=== PATIENT | male | born 1985 | race African-American/Black ===

== ENCOUNTER 2023-12-14 07:24 | Emergency (ER) | payer OTHER, SELFPAY ==
[2023-12-14] VITALS (27 sets, daily range): BP systolic 117–140; BP diastolic 84–102; PULSE 73–86; RESP 13–18; TEMP 36.3–37; O2SAT 92–100
--- NOTE | ~2023-12-14 | CT_ITS ---
EXAMINATION: CT soft tissue neck w con DATE: 12/14/2023 09:20 INDICATION: Sore throat. Assess for abscess. TECHNIQUE: Computed tomography (CT) of the neck was performed with 75 mL Omnipaque-350 intravenous co ntrast. Automated exposure control and iterative reconstruction technique were employed. The dose-krish gth product was 673.69 mGy-cm. COMPARISON: None FINDINGS: Mild discoid atelectasis in the left upper lobe. Orbits are normal. The paranasal sinuses, mastoid ai r cells and middle ear cavities are all clear. Submandibular and parotid glands are symmetric. Thyroi d gland is unremarkable. There is enlargement of the palatine tonsils, significantly more prominent o n the left where along the deep margin of the tarsal is a 2.7 x 2.1 x 1.1 cm peritonsillar abscess. T here is a smaller less well-defined region of decreased attenuation at the deep margin of the right p alatine tonsil measuring approximately 1.3 x 0.9 x 0.5 cm which could represent additional small absc ess versus phlegmonous change. There is effacement of the left side of the vallecula and piriform sin us which demonstrates low attenuation with a few internal foci of gas. There is small amount of more frothy appearing mucous along the posterior midline of the nasopharynx, oropharynx and hypopharynx. M ild asymmetric enlargement of the left but not the right lingual tonsil. Epiglottis is normal. There is likely reactive bilateral level 2 lymphadenopathy with lymph nodes measuring up to 1.8 cm on the l eft and 1.6 cm on the right. There is additional mild bilateral cervical and submandibular lymphadeno sheeba with increased prominence of multiple still normal-sized lymph nodes. The vasculature is patent and normal in caliber. Airway is unremarkable. Postoperative change of prior median sternotomy and l ikely coronary artery bypass grafting with surgical clips at the superior mediastinum which is otherw ise unremarkable. IMPRESSION: 1. Bilateral palatine tonsillitis with 2.7 x 2.1 x 1.1 cm peritonsillar abscess on the left and small amount smaller less well-defined 1.3 x 0.9 x 0.5 cm region of decreased attenuation on the right whi ch could represent additional peritonsillar abscess or less well-developed phlegmonous change. 2. Partial effacement of the left side of the vallecula and piriform sinus with low density and a few small foci of gas, unclear whether this represents additional soft tissue swelling with edema and ga s, either within the soft tissues or along mucosal folds versus potentially mucus. 3. Likely reactive bilateral cervical lymphadenopathy, greatest at the high jugular chains. Reviewed, dictated and finalized at location A. PMENT SUPERINTENDENT IMPRESSION: 1. Bilateral palatine tonsillitis with 2.7 x 2.1 x 1.1 cm peritonsillar abscess on the left and small amount smaller less well-defined 1.3 x 0.9 x 0.5 cm lia on of decreased attenuation on the right which could represent additional perit onsillar abscess or less well-developed phlegmonous change. 2. Partial effacement of the left side of the vallecula and piriform sinus with low density and a few small foci of gas, unclear whether this represents addit ional soft tissue swelling with edema and gas, either within the soft tissues o r along mucosal folds versus potentially mucus. 3. Likely reactive bilateral cervical lymphadenopathy, greatest at the high jug ular chains.
--- NOTE | 2023-12-14 08:20 | ED.GENADULT ---
HPI - General Adult General Chief complaint: Unspecified Stated complaint: UPPER RESP C/O Time Seen by Provider: 12/14/23 07:35 History of Present Illness HPI narrative: Patient is a 38-year-old male presenting with sore throat. States that it has been going on for the last week. States that it hurts to swallow and talk. States that he went to [facility] earlier today and they discharged him with Augmentin but did not do anything else. He is concerned for a peritonsillar abscess. States that they did not give him any pain meds. No fevers, chest pain, shortness of breath, abdominal pain, vomiting. Related Data Allergies Allergy/AdvReac Type Severity Reaction Status Date / Time morphine Allergy Intermediate Hives / Verified 12/14/23 07:35 Red Face Review of Systems Review of Systems: All systems reviewed & are unremarkable except as noted in HPI and below Exam Narrative: GENERAL: Nontoxic, no acute distress HEAD: Normocephalic, atraumatic. EYES: PERRLA and EOMI. ENT: Mucous membranes moist. + posterior pharyngeal edema/erythema worse on the left; airway patent, handling secretions NECK: Supple. CHEST: Clear to auscultation. No respiratory distress. HEART: Regular rate and rhythm ABDOMEN: Soft, nontender, nondistended EXTREMITIES: Normal range of motion. SKIN: Warm, dry, no rash. NEURO: No focal deficits. Alert and oriented x3. PSYCH: Normal mood and affect. Course Vital Signs Vital signs: Vital Signs Temperature 97.4 F L 12/14/23 07:30 Pulse Rate 78 12/14/23 07:30 Respiratory Rate 18 12/14/23 07:30 Blood Pressure 140/102 H 12/14/23 07:30 Pulse Oximetry 98 12/14/23 07:30 Oxygen Delivery Room Air 12/14/23 07:30 Temperature 98.6 F 12/14/23 12:31 Pulse Rate 74 12/14/23 14:01 Respiratory Rate 18 12/14/23 14:01 Blood Pressure 124/94 H 12/14/23 14:01 Pulse Oximetry 97 12/14/23 14:15 Oxygen Delivery Room Air 12/14/23 07:30 Medical Decision Making MDM Narrative Medical decision making narrative: 38-year-old male presenting with sore throat. Vitals are stable. Exam remarkable for the above. Blood work with leukocytosis of 12.6. CT soft tissue neck shows bilateral tonsillitis with a 3 x 2 cm peritonsillar abscess on the left. There is a possible developing abscess on the right versus phlegmonous changes. Patient has been covered with Unasyn, Decadron, has fluids ongoing. Call out to [facility] regarding peritonsillar abscess. 1305: Spoke with Dr. Vazquez with ENT at [facility] who advises ER to ER transfer. They will evaluate him in the ER and drain the abscess. I spoke with Dr. Dumont in the ER who has accepted the patient for transfer. Patient is agreeable with this plan. 1415: Patient is unwilling to wait for ambulance transfer to [facility]. 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 States that he is feeling better and he will just follow up outpatient. Discussed with the patient that he requires urgent ENT evaluation we do not recommend discharge at this time. Patient is A&O x4 and has decision-making capacity. He wants to leave against medical advice at this time. Discussed the risks of this that include and permanent disability. He is able to voiced understanding of these risks and states that he will follow up outpatient. He was encouraged to return at any time to any ER with any worsening symptoms. Advised that he at least take the Augmentin that was prescribed by [facility]. Patient left against medical advice ambulating steadily. Differential Diagnosis Differential Diagnosis: Tonsillitis, strep pharyngitis, peritonsillar abscess Medical Records Medical records reviewed: Yes I reviewed the external patient's medical records. Vital Signs Vital Signs: Vital Signs Temperature 97.4 F L 12/14/23 07:30 Pulse Rate 78 12/14/23 07:30 Respiratory Rate 18 12/14/23 07:30 Blood Pressure 140/102 H 12/14/23 07:30 Pulse Ox
[2023-12-14] MEDS: dexAMETHasone SOD PHOS INJ 10 MG/ML 1 ML VIAL IV PUSH (08:41)
[2023-12-14] MEDS: SODIUM CHLORIDE 0.9% IV 1,000 ML 999 ML IV CONT ×2 (08:41→12:33)
[2023-12-14 08:43] LABS: Basophils Percent Auto 0.3 % (0.2-1.2); Eosinophils Absolute Auto 0.2 K/mm3 (0-0.3); Eosinophils Percent Auto 1.7 % (0-4.4); Hematocrit 49.3 % (42.0-52.0); Hemoglobin 16.2 g/dL (14.0-18.0); Immature Granulocyte Absolute 0.05 K/mm3 (0.00-0.031); Immature Granulocyte Percent A 0.4 % (0-0.5); Lymphocytes Absolute Auto 2.48 K/mm3 (0.9-3.2); Lymphocytes Percent Auto 19.7 % (18.3-44.2); Mean Corpuscular HGB Conc 32.9 g/dl (32-36); Mean Corpuscular Hemoglobin 26.6 pg (26-34); Mean Corpuscular Volume 80.8 fl (80-100); Mean Platelet Volume 10.6 fl (7.4-10.4); Monocytes Absolute Auto 0.7 K/mm3 (0.1-0.6); Monocytes Percent Auto 5.2 % (2.6-8.5); Neutrophils Absolute Auto 9.2 K/mm3 (1.3-6.7); Neutrophils Percent Auto 72.7 % (45.5-73.1); Platelet Count Result 267 k/mm3 (150-375); Red Cell Distribution Width 13.4 % (11.5-14.5); White Blood Count 12.6 K/mm3 (4.5-10.0)
[2023-12-14] MEDS: HYDROmorphone HCL INJ (*CRX) 1 MG/ML SYR 0.5 MG IV PUSH ×2 (08:43→12:32)
[2023-12-14] MEDS: KETOROLAC 30 MG/ML VIAL (*BKC) IV PUSH (08:45)
[2023-12-14 08:54] LABS: Alanine Aminotransferase 40 U/L (6-50); Albumin Level 4.6 g/dL (3.5-5.1); Alkaline Phosphatase 111 U/L (38-126); Anion Gap 8 mmol/L (8-16); Aspartate Amino Transferase 28 U/L (17-59); Bilirubin,Total 0.9 mg/dL (0.2-1.3); Blood Urea Nitrogen 9 mg/dL (9-20); Calcium 9.6 mg/dL (8.4-10.2); Carbon Dioxide 29 mmol/L (22-30); Chloride 102 mmol/L (98-107); Estimated CRCL calculation 140 ml/min; Estimated Glomerular Filt Rate > 60; Glucose 128 mg/dL (65-110); Potassium 3.9 mmol/L (3.4-5.0); Sodium 139 mmol/L (137-145)
[2023-12-14 09:15] LABS: Strep Group A RT-PCR DETECTED (Negative)
[2023-12-14] MEDS: AMPICILLIN SULB 3 GM/NS 100 ML 3 GM/100 ML VIAL IVPB (11:41)
--- NOTE | 2023-12-14 14:45 | PC.NURSE ---
Pt was adamant that he did not want to be transferred, as he has to work tonight and is wanting to follow up outpatient because he stated that he's concerned he would be in the ER at [facility] all night. RN and MD extensively explained the risk for airway and the need for transfer. Pt verbalized understanding, but states he is feeling better after the steroids. Pt already has prescription for antibiotics from [facility], was told by MD to fill this script and get to the ER right away for any worsened symptoms, trouble breathing, or trouble swallowing. Pt again verbalized understanding of all teaching and continued to wish to leave. Pt signed AMA paperwork, provided number to follow up with ENT.
== END 2023-12-14 14:45 | disposition left against medical advice (07) ==
PROVIDERS: Emergency Provider Emergency Medicine
DX: J36 Peritonsillar abscess (principal); B95.5 Unspecified streptococcus as the cause of diseases classified elsewhere
CPT/HCPCS: 36415; 70491; 80053; 85025; 87651; 96361; 96365; 96375; 96376; 99284; J0295; J1100; J1170; J1885; J7030; Q9967